=== PATIENT | male | born 1945 | race Caucasian/White ===

== ENCOUNTER → 2019-07-14 | Outpatient (CLI) | payer MEDICARE, OTHER ==
[~2019-07-14] MED LIST: ACET325T14 PO; ASCO500T8 PO; ASPI-650 PO; ATOR40TA78 PO; Berberine PO; CA/D1TAB3 PO; CETI-158 PO; CHLO25TA PO; CHOL10003 PO; CHOL5000 PO; CHRM1TAB PO; CYAN200014 PO; DUTA0.5C PO; FISH1CAP PO; GABA300C PO; GARL10002 PO; GLUC-111 PO; GRAP25CA PO; HYDR2TAB29 PO; IBUP200C8 PO; INDO50CA15 PO; LANS30CA PO; M-171CAP PO; MELA3TAB31 PO; MELO15TA24 PO; MULT-717 PO; NAPR220C2 PO; OXYB5TAB10 PO; POLY17PO5 PO; PSYL0.528 PO; RESV50CA PO; SAW/1TAB2 PO; TIZA2CAP2 PO; UBID100C24 PO; VITA0.4T5 PO; [UNRECOGNIZED DRUG - OTHER] PO; [UNRECOGNIZED DRUG - OTHER] PO; [UNRECOGNIZED DRUG - OTHER] PO
[2019-07-14 12:34] LABS: ALANINE AMINOTRANSFERASE 41 U/L (12-78); ANION GAP 9 mmol/L (5-15); CALCIUM 9.6 mg/dL (8.5-10.1); CHLORIDE 108 mmol/L (98-107); CREATININE 1.24 mg/dL (0.7-1.3)
[2019-07-14 12:36] LABS: ALKALINE PHOSPHATASE 71 U/L (45-117); BILIRUBIN,TOTAL 0.6 mg/dL (0.2-1.0); TOTAL PROTEIN 7.9 g/dL (6.4-8.2)
== END | disposition home or self-care (01) ==
LOC: STAR 11:17
PROVIDERS: ATTEND Thoracic Surgery (Cardiothoracic Vascular Surgery)
DX: Z01.818 Encounter for other preprocedural examination (principal); R94.31 Abnormal electrocardiogram [ECG] [EKG]
CPT/HCPCS: 36415; 80053; 93005; U0001-CS

== ENCOUNTER 2019-07-19 07:32 | Day surgery (SDC) | payer MEDICARE, OTHER ==
[~2019-07-19] VITALS: Ht 188 cm; Wt 106.0 kg
[2019-07-19] MEDS ORDERED: BUPIVACAINE/PF-EPI 0.5% 1:200K ONE (07:54)
[2019-07-19] MEDS ORDERED: SUGAMMADEX 200 MG/2 ML IVPush ONE (07:57)
[2019-07-19] MEDS ORDERED: LACTATED RINGERS 1,000 ML IV SCH ×2 (08:05→11:30)
[2019-07-19 08:11] VITALS: BP 144/87
[2019-07-19] MEDS ORDERED: CHLORHEXIDINE 15 ML UDC MM ONE (08:30)
[2019-07-19] MEDS ORDERED: LIDOCAINE-MPF 1%, 2ML INFIL ONE (08:30)
[2019-07-19] MEDS ORDERED: CHLORHEXIDINE 15 ML UDC ONE (08:33)
[2019-07-19] MEDS ORDERED: MIDAZOLAM 1 MG/ML, 2ML ONE (09:51)
[2019-07-19] MEDS ORDERED: FENTANYL PF 250 MCG/5ML ONE ×2 (09:51→10:34)
[2019-07-19] MEDS ORDERED: DEXAMETHASONE 4 MG/ML, 1ML ONE (09:52)
[2019-07-19] MEDS ORDERED: PROPOFOL 10 MG/ML, 20ML ONE (09:56)
[2019-07-19] MEDS ORDERED: ROCURONIUM 10MG/ML,5ML ONE (09:56)
[2019-07-19] MEDS ORDERED: SUCCINYLCHOLINE 20 MG/ML, 10ML ONE (09:56)
[2019-07-19] MEDS ORDERED: MEPERIDINE/PF 25MG/0.5ML IVPush PRN (10:30)
[2019-07-19] MEDS ORDERED: LABETALOL 5MG/ML, 20ML IV PRN (10:30)
[2019-07-19] MEDS ORDERED: ONDANSETRON 2MG/ML, 2ML IVPush PRN ×2 (10:30→11:30)
[2019-07-19] MEDS ORDERED: hydrALAzine 20 MG/ML, 1ML IV PRN (10:30)
[2019-07-19] MEDS ORDERED: DIAZEPAM 5 MG/ML, 2ML IVPush PRN (10:30)
[2019-07-19] MEDS ORDERED: MIDAZOLAM 1 MG/ML, 2ML IV PRN (10:30)
[2019-07-19] MEDS ORDERED: ACETAMINOPHEN 325 MG TABLET PO PRN (10:30)
[2019-07-19] MEDS ORDERED: PROMETHAZINE 25 MG/ML, 1ML IVPush PRN (10:30)
[2019-07-19] MEDS ORDERED: ALBUTEROL SULFATE 2.5 MG/3 ML NPPB PRN (10:30)
[2019-07-19] MEDS ORDERED: PROMETHAZINE 12.5 MG SUPP PR PRN (10:30)
[2019-07-19] MEDS ORDERED: DIPHENHYDRAMINE 50 MG/ML, 1ML IVPush PRN (10:30)
[2019-07-19] MEDS ORDERED: HYDROmorphone 1 MG/ML, 1ML INJ IVPush PRN (10:30)
[2019-07-19] MEDS ORDERED: EPHEDRINE 50 MG/ML, 1ML IVPush PRN (10:30)
[2019-07-19] MEDS ORDERED: HYDROcodone/APAP 7.5-325MG/15ML UDC PO PRN (11:30)
[2019-07-19] MEDS ORDERED: morphine SULFATE 10 MG/ML, 1ML IVPush PRN (11:30)
[2019-07-19] MEDS ORDERED: HYDROcodone/APAP 5/325 TABLET PO PRN (11:30)
[2019-07-19] MEDS ORDERED: KETOROLAC 30 MG/1 ML IVPush PRN ×2 (11:30→11:56)
[2019-07-19] MEDS ORDERED: KETOROLAC 30 MG/1 ML ONE (11:32)
[2019-07-19] MEDS ORDERED: OXYcodone 5 MG/5 ML ORAL.SOL UDC ONE ×2 (11:46→12:00)
[2019-07-19] MEDS: OXYcodone 5 MG/5 ML ORAL.SOL UDC PO PRN ×2 (11:47→12:03)
[2019-07-19] MEDS ORDERED: FENTANYL PF 100 MCG/2ML ONE (12:00)
[2019-07-19] MEDS: FENTANYL PF 100 MCG/2ML IV PRN ×2 (12:02→12:13)
[2019-07-19] MEDS ORDERED: LABETALOL 5MG/ML, 20ML ONE (12:07)
[2019-07-19] MEDS ORDERED: hydrALAzine 20 MG/ML, 1ML ONE (12:22)
== END 2019-07-19 14:00 | disposition home or self-care (01) ==
LOC: OUT 07:32
PROVIDERS: ATTEND Thoracic Surgery (Cardiothoracic Vascular Surgery)
DX: K44.9 Diaphragmatic hernia without obstruction or gangrene (principal); K42.0 Umbilical hernia with obstruction, without gangrene; K21.9 Gastro-esophageal reflux disease without esophagitis; G47.33 Obstructive sleep apnea (adult) (pediatric); E78.5 Hyperlipidemia, unspecified; J44.9 Chronic obstructive pulmonary disease, unspecified; N40.0 Benign prostatic hyperplasia without lower urinary tract symptoms; Z79.82 Long term (current) use of aspirin; Z79.899 Other long term (current) drug therapy
CPT/HCPCS: 43282; 49587; C1781; J0330; J0360; J1100; J1885; J2250; J2704; J3010; J7120

== ENCOUNTER 2020-05-24 08:52 | Outpatient (CLI) | payer MEDICARE, OTHER ==
[~2020-05-24 08:52] MED LIST changes: -ASPI-650 PO; +ASPI325T20 PO
[2020-05-24 09:45] LABS: ANION GAP 6 mmol/L (5-15); CALCIUM 9.8 mg/dL (8.5-10.1); CHLORIDE 107 mmol/L (98-107); CREATININE 1.07 mg/dL (0.7-1.3)
== END 2020-05-24 23:59 | disposition home or self-care (01) ==
LOC: STAR 08:52
PROVIDERS: ATTEND Orthopaedic Surgery
DX: Z01.818 Encounter for other preprocedural examination (principal); Z01.89 Encounter for other specified special examinations; Z01.812 Encounter for preprocedural laboratory examination; R79.1 Abnormal coagulation profile; R94.31 Abnormal electrocardiogram [ECG] [EKG]
CPT/HCPCS: 36415; 80048; 93005